=== PATIENT | female | born 1965 | race Caucasian/White ===

== ENCOUNTER → 2017-11-03 02:22 | Outpatient (CLI) | payer MEDICAID, SELFPAY ==
--- NOTE | 2017-11-03 13:20 | DI.MAMMO_ITS ---
SYMPTOM/DIAGNOSIS: SCREENING Z12.31 BILATERAL SCREENING MAMMOGRAM: Mammograms were interpreted according to the usual protocol including computer analysis with CAD system, tomosynthesis and C view imaging. Comparison is made with exams from 2015 and 2016 from [place], [place]. The breasts are composed of heterogeneously dense fibroglandular tissue, breast density category C. No suspicious masses or suspicious microcalcifications are seen. There has been no significant change. IMPRESSION: Category 1-C, negative mammogram. Yearly screening mammography is recommended. [facility] ASSESSMENT OF FINDINGS: Negative. Category 1. Patient will receive a letter notifying them of these results. Bi-RADS category C. The breasts are heterogeneously dense, which may obscure small masses.
== END ==
PROVIDERS: PCP Nurse Practitioner; Visit Provider Nurse Practitioner
DX: Z12.31 Encounter for screening mammogram for malignant neoplasm of breast (principal)
CPT/HCPCS: 77063; 77067

== ENCOUNTER 2017-11-07 13:26 | Outpatient (REF) | payer MEDICAID, SELFPAY ==
--- NOTE | 2017-11-07 10:00 | PAPFT_PTH ---
PATIENT: Viola Goodrich LOC: [facility] U#:[id number] AGE/SX: 52/F ROOM: RE11/07/[address]: Maria A Turk APRN : 1965 BED: DIS: 11/07/2017 SPEC #: [id number] RECD: 11/07/17 17:50 STATUS: PANKAJ RESuzan #: [id number] MILES: 11/07/17 10:[address]: Maria A Turk DEPT: [facility] Cytology RECD BY: Belinda Urena Tissues: 1 - CX/ENDOCX FOR PAP SMEARS Procedures: PAP THIN PREP/UVM Screening HPV DNA PROBE Comments: [id number]
== END 2017-11-07 13:46 ==
LOC: LBN 13:26
PROVIDERS: PCP Nurse Practitioner; Visit Provider Nurse Practitioner
DX: Z12.4 Encounter for screening for malignant neoplasm of cervix (principal); Z11.51 Encounter for screening for human papillomavirus (HPV)
CPT/HCPCS: 88142; 87624

== ENCOUNTER 2017-11-17 00:13 | Outpatient (CLI) | payer MEDICAID, SELFPAY ==
--- NOTE | 2017-11-17 09:58 | DI.US_ITS ---
SYMPTOMS/DIAGNOSIS: ABD PAIN, PELVIC PAIN, BLOATING, R10.9, R10.2 ABDOMEN ULTRASOUND: The liver is normal in size and echogenicity. No biliary dilatation is seen. The gallbladder has a normal appearance, without evidence of stones or wall thickening. The pancreas, aorta, kidneys and spleen appear normal. There is no ascites. IMPRESSION: Negative abdomen ultrasound. PELVIC ULTRASOUND: Transabdominal and transvaginal exams were performed. The uterus measures 6.7 x 2.6 x 4 cm. The endometrial stripe measures 3 mm. There are a few small hypoechoic areas in the uterus likely representing small fibroids. The ovaries are normal in size and appearance. No cyst or mass is seen. There is no free fluid. IMPRESSION: Small uterine fibroids. Normal appearing ovaries.
== END 2017-11-17 00:33 ==
PROVIDERS: PCP Nurse Practitioner; Visit Provider Nurse Practitioner
DX: R10.9 Unspecified abdominal pain (principal); R10.2 Pelvic and perineal pain; R14.0 Abdominal distension (gaseous); D25.9 Leiomyoma of uterus, unspecified
CPT/HCPCS: 76700; 76830; 76856

== ENCOUNTER 2019-02-13 10:22 | Outpatient (CLI) | payer MEDICAID, SELFPAY ==
[2019-02-13 11:45] LABS: ALT 26 U/L (14-59); AST 22 U/L (15-37); Albumin 3.6 g/dL (3.4-5.0); Alkaline Phosphatase 70 U/L (46-116); Anion Gap 8.2 mmol/L (3-11); BUN 13 mg/dL (7-18); Bilirubin, Total 0.5 mg/dL (0.2-1.0); CO2 28.8 mmol/L (21.0-32.0); CREATININE 0.69 mg/dL (0.55-1.02); Calcium 9.3 mg/dL (8.5-10.1); Calculated LDL 116 mg/dL; Chloride 104 mmol/L (98-107); Cholesterol 198 mg/dL (<200); Glucose 100 mg/dL (74-106); HDL Cholesterol 72 mg/dL (40-60); Potassium 4.7 mmol/L (3.5-5.1); Sodium 141 mmol/L (136-145); Total Protein 7.7 g/dL (6.4-8.2); Triglyceride 52 mg/dL (<150)
== END 2019-02-13 10:42 ==
PROVIDERS: PCP Nurse Practitioner; Visit Provider Nurse Practitioner
DX: Z13.220 Encounter for screening for lipoid disorders (principal)
CPT/HCPCS: 36415; 80053; 80061; 84155

== ENCOUNTER 2019-02-13 10:33 | Outpatient (REF) | payer MEDICAID, SELFPAY ==
--- NOTE | 2019-02-13 10:00 | PAPFT_PTH ---
PATIENT: Viola Goodrich LOC: [facility] U#:[id number] AGE/SX: 53/F ROOM: RE02/13/[address]: Maria A Turk APRN : 1965 BED: DIS: 02/13/2019 SPEC #: [id number] RECD: 02/13/19 12:44 STATUS: PANKAJ RESuzan #: [id number] MILES: 02/13/19 10:[address]: Maria A Turk DEPT: [facility] Cytology RECD BY: Belinda Urena Tissues: 1 - CX/ENDOCX FOR PAP SMEARS Procedures: PAP THIN PREP/UVM Screening HPV DNA PROBE Comments: [id number]
== END 2019-02-13 10:53 ==
LOC: LBN 10:33
PROVIDERS: PCP Nurse Practitioner; Visit Provider Nurse Practitioner
DX: Z12.4 Encounter for screening for malignant neoplasm of cervix (principal); Z11.51 Encounter for screening for human papillomavirus (HPV)
CPT/HCPCS: 88142; 87624

== ENCOUNTER 2019-03-18 12:05 | Outpatient (CLI) | payer MEDICAID, SELFPAY ==
--- NOTE | 2019-03-18 10:08 | DI.RAD_ITS ---
EXAM: XR CERVICAL SP MUSTAFA TRAUMA 2-3V INDICATION: EVAL NECK PAIN AND STIFFNESS. COMPARISON: No exams were available for comparison TECHNIQUE: 2D digital imaging was performed. FINDINGS: There is artifact from the patient's hair tie overlying the cervical spine. The odontoid is intact. The lateral masses are well aligned. No acute fracture or subluxation is se en. There is straightening of the normal cervical lordosis. This can be seen with muscle spasm or p atient positioning. There are small endplate osteophytes in the cervical spine. The bones are russell lly mineralized. Prevertebral soft tissues are unremarkable. IMPRESSION: 1. Artifact from the patient's hair tie is seen overlying the cervical spine. 2. Mild degenerative changes in the cervical spine.
--- NOTE | 2019-03-18 10:13 | DI.RAD_ITS ---
EXAM: XR SHOULDER LT COMPLETE 2+V CLINICAL HISTORY: eval L shoulder pain. TECHNIQUE: 2D digital imaging was performed. COMPARISON: No exams were available for comparison FINDINGS: BONES: No acute fracture is present. No bony destructive lesion is seen. JOINTS: No dislocation present. SOFT TISSUE: Normal. IMPRESSION: Unremarkable radiographs of the left shoulder.
== END 2019-03-18 12:25 ==
PROVIDERS: PCP Nurse Practitioner; Visit Provider Student in an Organized Health Care Education/Training Program
DX: M54.2 Cervicalgia (principal); M47.812 Spondylosis without myelopathy or radiculopathy, cervical region; M25.512 Pain in left shoulder
CPT/HCPCS: 72040; 73030

== ENCOUNTER 2020-02-19 01:42 | Outpatient (CLI) | payer MEDICAID, SELFPAY ==
[2020-02-19 13:16] LABS: ALT 26 U/L (14-59); AST 20 U/L (15-37); Albumin 3.8 g/dL (3.4-5.0); Alkaline Phosphatase 73 U/L (46-116); Anion Gap 6.5 mmol/L (3-11); BUN 16 mg/dL (7-18); Bilirubin, Total 0.5 mg/dL (0.2-1.0); CO2 29.5 mmol/L (21.0-32.0); CREATININE 0.66 mg/dL (0.55-1.02); Calcium 9.1 mg/dL (8.5-10.1); Calculated LDL 99 mg/dL (<100); Chloride 106 mmol/L (98-107); Cholesterol 190 mg/dL (<200); Glucose 97 mg/dL (74-106); HDL Cholesterol 85 mg/dL (40-60); Potassium 4.6 mmol/L (3.5-5.1); Sodium 142 mmol/L (136-145); Total Protein 7.8 g/dL (6.4-8.2); Triglyceride 34 mg/dL (<150)
== END 2020-02-19 02:02 ==
PROVIDERS: PCP Nurse Practitioner; Visit Provider Nurse Practitioner
DX: Z13.220 Encounter for screening for lipoid disorders (principal); Z00.00 Encounter for general adult medical examination without abnormal findings
CPT/HCPCS: 36415; 80053; 80061

== ENCOUNTER 2020-03-16 01:04 | Outpatient (CLI) | payer MEDICAID, SELFPAY ==
--- NOTE | 2020-03-16 13:21 | DI.MAMMO_ITS ---
EXAM: MG MAMMO SCREENING CLINICAL HISTORY: screening,z12.39. TECHNIQUE: Bilateral full field digital CC and MLO mammographic images were obtained with 3D tomosyn thesis and utilizing computer aided detection (CAD). COMPARISON: Prior mammograms dating back to 2014, the most recent being October 2017. FINDINGS: Fibroglandular tissue is moderately dense. There are no new obvious spiculated masses no malignant-appearing microcalcification groups. A centr ally located group microcalcifications in the right breast is unchanged from 2015 and therefore benig n. Microcalcification groups in the left breast are also unchanged from 2015 and therefore benign. There are no malignant-appearing microcalcification groups. There is no significant architectural di stortion nor skin thickening-retraction. IMPRESSION: Stable benign findings. No radiographic evidence of malignancy. BI-RADS Category 2 - Benign Findings Breast Density - Category C - Heterogeneously dense Breast density Category C or D implies that the patient has dense breast tissue. Dense breast tissue can make it harder to find cancer on a mammogram. Dense breast tissue is also associated with an incr eased risk of breast cancer. This information about the result of the mammogram report was provided to the patient to raise their awareness. Use this report when you speak with the patient about their risks for breast cancer, which includes their family history. At that time, you may recommend additional screening tests (Ultrasoun d or MRI) as these tests may add significant information. A negative radiographic report should not delay biopsy if a dominant or clinically suspicious mass is present. Up to ten percent of cancers are not identified on mammography. A negative report may reinforce clinical impression. Adenosis and dense breasts may obscure an underlying neoplasm. False positive reports average 6 to 10%. Patient will receive a letter notifying them of these results.
== END 2020-03-16 01:24 ==
PROVIDERS: PCP Nurse Practitioner; Visit Provider Nurse Practitioner
DX: Z12.31 Encounter for screening mammogram for malignant neoplasm of breast (principal)
CPT/HCPCS: 77063; 77067

== ENCOUNTER 2020-12-17 01:36 | Outpatient (CLI) | payer MEDICAID, SELFPAY ==
--- NOTE | 2020-12-17 07:00 | DI.US_ITS ---
Exam(s) US ABDOMEN EXAM: US ABDOMEN INDICATION: discomfort and bloating upper abdomen,EPIGASTRIC ABD PAIN,R10.13,R14.0 COMPARISON: US US ABD PELV TRANSVAG NON-STRUCTURAL FITTER from 11/17/2017 TECHNIQUE: Ultrasound abdomen performed using standard protocol FINDINGS: Abdominal ultrasound was performed according to the usual protocol. The liver is normal in size and shape. No focal hepatic lesion seen. Mildly increased echogenicity o f the liver noted, possible hepatic steatosis. There is no evidence of cholelithiasis or biliary dilatation. No gallbladder wall thickening or peric holecystic fluid collection. Portal venous flow is hepatopetal. Pancreas appears intact as visualized. Spleen is unremarkable in appearance with no focal lesion. Kidneys are normal in size and shape. No renal mass, hydronephrosis, or nephrolithiasis. Abdominal aorta and IVC are of normal diameter. IMPRESSION: Possible hepatic steatosis, otherwise negative abdominal ultrasound .
== END 2020-12-17 01:56 ==
PROVIDERS: PCP Nurse Practitioner; Visit Provider Nurse Practitioner
DX: R10.13 Epigastric pain (principal); R14.0 Abdominal distension (gaseous)
CPT/HCPCS: 36415; 82784; 83516; 76700

== ENCOUNTER 2021-02-22 11:35 | Outpatient (REF) | payer MEDICAID, SELFPAY ==
[2021-02-22 15:07] LABS: Abs Immature Grans 0.01 10^3/uL (0.0-0.06); Absolute Basophil Count 0.05 10^3/uL (0.0-0.2); Absolute Eosinophil Count 0.25 10^3/uL (0.0-0.7); Absolute Lymphocyte Count 2.67 10^3/uL (1.2-3.4); Absolute Monocyte Count 0.56 10^3/uL (0.1-0.8); Basophils % 0.7; Eosinophils % 3.4; HCT 42.2 % (36.0-46.0); HGB 13.5 g/dL (11.2-15.7); Immature Grans % 0.1; Lymphocytes % 35.9; MCH 29.9 pg (27.0-33.0); MCV 93.6 fL (80-95); MPV 12.6 fL (8.0-11.0); Monocytes % 7.5; Neutrophils % 52.4; Nucleated RBC 0 %; Platelet Count 310 10^3/uL (130-400); RBC 4.51 10^6/uL (3.93-5.22); RDW 13.8 % (11.7-14.6); RDW-SD 47.6 fL; WBC 7.44 10^3/uL (4.4-10.8)
[2021-02-22 15:30] LABS: ALT 25 U/L (14-59); AST 15 U/L (15-37); Albumin 3.8 g/dL (3.4-5.0); Alkaline Phosphatase 74 U/L (46-116); Anion Gap 6.9 mmol/L (3-11); BUN 15 mg/dL (7-18); Bilirubin, Total 0.5 mg/dL (0.2-1.0); CO2 29.1 mmol/L (21.0-32.0); CREATININE 0.7 mg/dL (0.55-1.02); Calcium 9.1 mg/dL (8.5-10.1); Calculated LDL 98 mg/dL (<100); Chloride 105 mmol/L (98-107); Cholesterol 189 mg/dL (<200); Glucose 95 mg/dL (74-106); HDL Cholesterol 82 mg/dL (40-60); Potassium 4.5 mmol/L (3.5-5.1); Sodium 141 mmol/L (136-145); Total Protein 7.4 g/dL (6.4-8.2); Triglyceride 49 mg/dL (<150)
== END 2021-02-22 11:36 | disposition home or self-care (01) ==
LOC: LBN 11:35
PROVIDERS: PCP Nurse Practitioner; Visit Provider Nurse Practitioner
DX: J45.909 Unspecified asthma, uncomplicated (principal); Z13.220 Encounter for screening for lipoid disorders; Z00.00 Encounter for general adult medical examination without abnormal findings
CPT/HCPCS: 80053; 80061; 85025

== ENCOUNTER 2022-11-17 12:01 | Day surgery (SDC) | payer MEDICAID, SELFPAY ==
--- NOTE | 2022-11-17 10:26 | W.PM.DSUDISC ---
Date of service: 11/17/22 Time of Service: 13:54 Discharge Plan Disposition Patient Disposition: Home Condition: Good Discharge Details Reason For Visit: Screening colonoscopy Attending Provider: Boubacar Hernandez Primary Care Provider: Maria A Turk Home Meds and New Rx's Prescriptions: Continued fluticasone propionate 50 mcg/actuation spray,suspension 2 spray NS BID PRN ibuprofen [Advil] 200 mg tablet 400 mg PO Q6H PRN (Reason: neck pain) Discontinued polyethylene glycol 3350 17 gram/dose powder 238 g PO ONCE Qty: 238 0RF Rx Instructions: take per colonoscopy instructions bisacodyl [Dulcolax (bisacodyl)] 5 mg tablet,delayed release (DR/EC) 5 mg PO ONCE Qty: 4 0RF Rx Instructions: take per colonoscopy instructions Discharge Instructions Additional Instructions: Viola, We were able to complete your colonoscopy today without any difficulty. The quality of your prep was excellent. I did not see anything out of the ordinary. There were no polyps or tumors. Based on your previous negative colonoscopy in 2016, and the negative colonoscopy today, I recommend considering another screening colonoscopy in 10 years 1. If tolerated, consume a soft, low fiber diet for 1-2 days. 2. Do not drive, drink alcohol, operate machinery, make critical decisions, or do activities that require coordination or balance for 24 hours. 3. Because air was put into your colon during the procedure, expelling air from your rectum (passing gas or farting) is normal. 4. You may not have a bowel movement for 1-3 days because of the colonoscopy prep. This is normal. 5. Go directly to the emergency room if you notice any of the following: Develop chills (warm to touch), or if you have a thermometer and your temperature is above 101 Difficulty breathing or difficultly swallowing Persistent vomiting Severe abdominal pain, other than gas cramps Severe chest pain Black, tarry stools Any bleeding ? exceeding one tablespoon 6. Call your physician if the site where your intravenous was started becomes red, swollen, painful, and warm to touch. 7. Your physician has reviewed your pre-procedure medications. Please continue to take those medications as previously ordered. You will be given specific information/education regarding any changes to your medications before leaving. Activity:: Activity as Tolerated Diet:: As Tolerated Discharge Orders Discharge Orders: Discharge Order (Routine); Ordered 11/17/22 Ordered By: Boubacar Hernandez DS: Diagnosis Discharge Diagnosis (1) Colon cancer screening: Status: Acute Asessment and Plan: Negative screening colonoscopy
--- NOTE | 2022-11-17 10:27 | W.COLOREPORT ---
Date of service: 11/17/22 Time of Service: 13:58 Colonoscopy Report Date of procedure: 11/17/22 Pre-op diagnosis general: screening colonoscopy Post-op diagnosis procedure note: other (Negative screening colonoscopy) Procedure: Colonoscopy Surgeon: Boubacar Hernandez Anesthesia Type: General:No Airway Estimated blood loss (mL): 0 Pathology: none sent Complications: None Disposition: same day Indications: Viola is a 57 year old woman who needs her next screening colonoscopy Prep: Miralax/Dulcolax Procedure Start Time: 12:35 Procedure End Time: 12:50 Retraction Time: 9 Findings: Negative screening colonoscopy Procedure Description: After the induction of monitored anesthetic care, and with the patient in left lateral decubitus position, I began by performing an external anorectal exam.? Perineum and skin were normal, as was the anal verge.? There was no evidence of external hemorrhoids.? Next, I performed a digital rectal exam.? I did not appreciate any abnormal findings.? Next, I advanced a colonoscope into the rectal vault.? I performed retroflexion.? This was normal.? Using insufflation, I then advanced the colonoscope beyond the rectal folds and into the sigmoid colon before advancing towards the cecum.? The quality of the prep was excellent.? The scope was noted to be in the cecum by identification of the ileocecal valve and appendiceal orifice.? I then began withdrawing the colonoscope using repeated irrigation as necessary for full evaluation of the colonic mucosa. I did not see any signs of tumors or polyps anywhere in the large intestine. once the scope was withdrawn to the level of the rectum, great care was taken to examine portions of the rectal folds.? Finally, the scope was withdrawn and the patient was brought to the same-day surgery recovery unit as the anesthetic wore off. ?The findings and instructions were shared with the patient prior to discharge.
[2022-11-17 12:22] VITALS: BP 141/86; PULSE 62; RESP 16; TEMP 36.5; O2SAT 99
--- NOTE | 2022-11-17 13:05 | W.ANESPRE ---
General Info Date of Service Date Performed: 11/17/22 Height: 5 ft 3 in Weight: 74.1 kg Body Mass Index (BMI): 28.9 Surgical Procedure: Operation Date: 11/17/22 13:35 Proposed Procedure Side Surgeon jarod Hernandez MD Meds Allergies and Home Medications Allergies Allergy/AdvReac Type Severity Reaction Status Date / Time latex Allergy Intermediate Skin Rash Verified 11/17/22 12:34 shrimp Allergy Intermediate GI upset, Uncoded 11/17/22 12:34 water itches hands Home Medication Medication Instructions Recorded ibuprofen 200 mg tablet (Advil) 400 mg PO Q6H PRN neck pain 10/27/21 fluticasone propionate 50 2 spray NS BID PRN 11/09/22 mcg/actuation nasal spray,suspension Current Visit Medications: Current Medications Generic Name Dose Route Start Last Admin Trade Name Freq PRN Reason Stop Dose Admin Hyoscyamine Sulfate 0.125 mg 11/17/22 10:30 Hyoscyamine 0.125 Mg Sl/Oral/Chew SL 12/17/22 10:29 DIRECTED PRN Ringer's Solution 1,000 mls @ 80 mls/hr 11/17/22 06:00 IV 12/16/22 23:59 [facility] IV Miscellaneous Supplies 1 each 11/17/22 06:00 Iv Access IV 12/16/22 23:59 DIRECTED JESSIE Ondansetron HCl 4 mg 11/17/22 10:30 Ondansetron 4 Mg/2 Ml Vial IVP 12/17/22 10:29 Q4H PRN PRN Nausea / Vomiting Sodium Chloride 0 ml 11/17/22 06:00 Normal Saline Flush 10 Ml Syr IV 12/16/22 23:59 PRN PRN Sodium Chloride 0 ml 11/17/22 06:00 Normal Saline 10 Ml Vial IJ 12/16/22 23:59 DIRECTED PRN Sterile Water 0 ml 11/17/22 06:00 Water,Injection,Sterile 10 Ml Vial IJ 12/16/22 23:59 DIRECTED PRN PFSH Active Problems Active Problems: Problem Status Onset Code Breast calcifications 07/07/17 R92.1 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 Uterine fibroid D25.9 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 Routine general medical examination at a health care facility Z00.00 Encounter for routine gynecological examination Z01.419 Left shoulder pain M25.512 Tendinitis of left rotator cuff M75.82 Scapular dyskinesis G25.89 Screening for cholesterol level Z13.220 Spider vein of right lower extremity I83.91 Edema of right lower extremity R60.0 Abdominal bloating R14.0 Epigastric abdominal pain R10.13 Colon cancer screening Z12.11 Vertigo R42 Varicose veins of both lower extremities with pain I83.813 Surgical History Surgical History (Updated 11/17/22 @ 12:34 by Radha Garcia RN) Hx of colonoscopy Hx of varicose vein stripping Ligation of fallopian tube Tobacco Smoking/Tobacco Use Status: Former Tobacco Use Passive smoking exposure: No Second hand exposure: No Alcohol Alcohol Intake: current Alcohol intake frequency: 0-2 drinks per day Alcohol type: wine Substance Use Substance use: Never Substance use type: does not use Vital Signs and Lab Results Vital Signs Most Recent Vital Signs in EMR: Most Recent Vital Signs Temp Pulse Resp BP Pulse Ox 36.5 C 62 16 141/86 H 99 11/17/22 12:22 11/17/22 12:22 11/17/22 12:22 11/17/22 12:22 11/17/22 12:22 Lab Results Blood Type / Crossmatch: No Data to Display Complete Blood Count: No Data to Display Complete Metabolic Panel: No Data to Display Liver Function Panel: No Data to Display Coagulation Panel: No Data to Display Cardiac Panel: No Data to Display Arterial Blood Gas: No Data to Display Venous Blood Gas: No Data to Display Pancreas Panel: No Data to Display Thyroid Panel: No Data to Display Infectious Disease: No Data to Display Blood Cultures: No Data to Display Toxicology Panel: No Data to Display Anesthesia Assessment and Plan Anesthesia History Personal History: No History of Anesthesia Complications and Pseudocholinesterase Deficiency Family History: No Family History of Anesthesia Complications Exercise Tolerance Exercise Tolerance: Metabolic Equivalents>4 Pertinent Negatives Pertinent Negatives: No Symptoms of GERD, No Major Cardiovascular Symptoms or Complaints, No Major Pulmonary Symptoms or Complaints and No History of CVA/TIA Cardiac & Pulmonary Exam Cardiac Exam: Normal S1/S2 Heart Sounds Pulmonary Exam: Clear Bilateral Breath Sounds Implantable Cardiac Device Does patient have a Pacemaker or an ICD?: No Airway Exam Known Difficult Airway: No Mallampati Class: 3 Mouth Opening: Narrow (< 3cm) Thyromental Distance: Greater than 3 cm Neck Range of Motion: Full ROM Neck Circumference: Normal Teeth Condition: Normal Dentition and Removable Dentures/Plates Upper (upper partial ) ASA Classification ASA Score: ASA 2 Emergency Case?: No NPO Status NPO Status: NPO Clears >2 hours, Solids >8 hours Anesthesia Plan Resuscitation Status: Full Code Anesthesia Technique: General Anesthesia Airway Planned: Natural Airway Monitors Used: Standard Monitors
[2022-11-17] MEDS: Lactated Ringers 1,000 ML 80 ML IV (13:24)
[2022-11-17 13:28] VITALS: BMI 28.9
[2022-11-17 13:58] VITALS: BP 102/71; PULSE 78; RESP 16; TEMP 36.2; O2SAT 97
[2022-11-17 14:27] VITALS: BP 112/74; PULSE 70; RESP 17; TEMP 36.4; O2SAT 98
--- NOTE | 2022-11-17 14:29 | W.ANESPOSTOP ---
Postoperative Evaluation Date, Time and Location Date Performed: 11/17/22 Time Performed: 14:01 Patient Location: Day Surgery Unit Vital Signs Most Recent Imported Vital Signs: Most Recent Vital Signs Temp Pulse Resp BP Pulse Ox 36.2 C L 78 16 102/71 97 11/17/22 13:58 11/17/22 13:58 11/17/22 13:58 11/17/22 13:58 11/17/22 13:58 Pain Score Most Recent Pain Score: Most Recent Pain Score Pain Level 0 11/17/22 13:58 Assessment Mental Status: Awake (Alert & Oriented to Patient Baseline) Airway and Respiratory Function: Patent airway with normal (patient baseline) respiratory exam Cardiovascular Function: Hemodynamically Stable Hydration Status: Adequately Hydrated Nausea & Vomiting: No Nausea or Vomiting Pain: Pt. Denies Any Pain Peripheral Nerve Block: Patient did not receive a nerve block
== END 2022-11-17 14:33 | disposition home or self-care (01) ==
PROVIDERS: PCP Nurse Practitioner; Visit Provider Surgery
PROC: 0DJD8ZZ Inspection of Lower Intestinal Tract, Via Natural or Artificial Opening Endoscopic (ICD-10-PCS; CPT 45378; principal; 2022-11-17 13:30)
DX: Z12.11 Encounter for screening for malignant neoplasm of colon (principal)
CPT/HCPCS: 45378

== ENCOUNTER 2022-12-05 19:08 | Outpatient (REF) | payer SELFPAY | END 2022-12-05 19:09 | disposition home or self-care (01) | LOC: LBN 19:08 | PROVIDERS: PCP Nurse Practitioner; Visit Provider Nurse Practitioner | DX: R30.0 Dysuria (principal) | CPT/HCPCS: 87086 ==

== ENCOUNTER 2023-01-16 03:53 | Outpatient (CLI) | payer SELFPAY ==
[2023-01-16 15:47] LABS: ALT 25 U/L (14-59); AST 23 U/L (15-37); Albumin 3.6 g/dL (3.4-5.0); Alkaline Phosphatase 77 U/L (46-116); Anion Gap 6.9 mmol/L (3-11); BUN 12 mg/dL (7-18); Bilirubin, Total 0.4 mg/dL (0.2-1.0); CO2 29.1 mmol/L (21.0-32.0); CREATININE 0.7 mg/dL (0.55-1.02); Calcium 9.5 mg/dL (8.5-10.1); Chloride 103 mmol/L (98-107); Estimated GFR 100.19 (mL/min/1.73m2); Glucose 99 mg/dL (74-106); Potassium 3.9 mmol/L (3.5-5.1); Sodium 139 mmol/L (136-145); Total Protein 8.2 g/dL (6.4-8.2)
[2023-01-16 16:49] LABS: Calculated LDL 101 mg/dL (<100); Cholesterol 196 mg/dL (<200); HDL Cholesterol 85 mg/dL (40-60); Triglyceride 50 mg/dL (<150)
== END 2023-01-16 03:54 | disposition home or self-care (01) ==
LOC: LBO 03:55
PROVIDERS: PCP Nurse Practitioner; Visit Provider Nurse Practitioner
DX: Z13.220 Encounter for screening for lipoid disorders (principal)
CPT/HCPCS: 36415; 80053; 80061

== ENCOUNTER 2024-08-07 10:36 | Outpatient (CLI) | payer MEDICAID, SELFPAY ==
--- NOTE | 2024-08-07 11:09 | DI.RAD_ITS ---
Exam(s) XR FOOT RT COMPLETE EXAM: XR FOOT RT COMPLETE CLINICAL HISTORY: new bilateral heel pain; Rt heel pain, M79.671. TECHNIQUE: 2D digital imaging was performed of the right foot. Three images were obtained. AP, obl ique and lateral views were obtained. COMPARISON: No exams were available for comparison FINDINGS: BONES: No acute fracture is present. No bony destructive lesion is seen. There is a small plantar yamile caneal spur. There is a small enthesophyte at the posterior calcaneus. JOINTS: No dislocation present. SOFT TISSUE: Normal. IMPRESSION: Calcaneal spurs. DATA REPOSITORY: RADIATION DOSE DELIVERED:
--- NOTE | 2024-08-07 11:12 | DI.RAD_ITS ---
Exam(s) XR FOOT LT COMPLETE EXAM: XR FOOT LT COMPLETE CLINICAL HISTORY: new bilateral heel pain; pain in lt foot, M79.672. TECHNIQUE: 2D digital imaging was performed of the left foot. Three images were obtained. AP, obli que and lateral views were obtained. COMPARISON: No exams were available for comparison FINDINGS: BONES: No acute fracture is present. No bony destructive lesion is seen. There is a small plantar yamile caneal spur. There is a small enthesophyte at the posterior calcaneus. JOINTS: No dislocation present. SOFT TISSUE: Normal. IMPRESSION: Calcaneal spurs. DATA REPOSITORY: RADIATION DOSE DELIVERED:
== END 2024-08-07 10:56 ==
LOC: DI 10:36
PROVIDERS: PCP Nurse Practitioner; Visit Provider Family Medicine
DX: M79.671 Pain in right foot (principal); M79.672 Pain in left foot; M77.32 Calcaneal spur, left foot; M77.31 Calcaneal spur, right foot
CPT/HCPCS: 73630

== ENCOUNTER 2024-08-07 11:21 | Outpatient (CLI) | payer MEDICAID, SELFPAY ==
[2024-08-07 10:59] LABS: Abs Immature Grans 0.03 10^3/uL (0.0-0.06); Absolute Basophil Count 0.05 10^3/uL (0.0-0.2); Absolute Eosinophil Count 0.39 10^3/uL (0.0-0.7); Absolute Lymphocyte Count 2.78 10^3/uL (1.2-3.4); Absolute Monocyte Count 0.58 10^3/uL (0.1-0.8); Absolute Neutrophil Count 4.26 10^3/uL (1.2-6.7); Basophils % 0.6 %; Eosinophils % 4.8 %; HCT 43.9 % (36.0-46.0); HGB 13.9 g/dL (11.2-15.7); Immature Grans % 0.4 %; Lymphocytes % 34.4 %; MCH 29.4 pg (27.0-33.0); MCHC 31.7 % (32.0-36.0); MCV 93 fL (80-95); MPV 11.2 fL (8.0-11.0); Monocytes % 7.2 %; Neutrophils % 52.6 %; Platelet Count 302 10^3/uL (130-400); RBC 4.72 10^6/uL (3.93-5.22); RDW 13.9 % (11.7-14.6); RDW-SD 47.7 fL; WBC 8.09 10^3/uL (4.4-10.8)
[2024-08-07 10:59] LABS: Bilirubin Negative (Negative); Blood Trace-lysed (Negative); Clarity Clear (Clear); Glucose Negative (Negative); Ketones Negative (Negative); Leukocyte Esterase Negative (Negative); Nitrite Negative (Negative); Specific Gravity <= 1.005 (1.005-1.025); Urobilinogen 0.2 mg/dL (Up to 0.2)
[2024-08-07 11:17] LABS: Bacteria Rare HPF (Negative); C & S Indicated? No; Casts Negative LPF (Negative); Crystals Negative HPF (Negative); Epithelial Cells Rare HPF (Negative); Mucus Negative (Negative); WBC 0-2 HPF (0-5)
[2024-08-07 11:41] LABS: Hemoglobin A1C 5.6 % (<5.7)
[2024-08-07 11:57] LABS: ALT 20 U/L (14-59); AST 19 U/L (15-37); Albumin 3.6 g/dL (3.4-5.0); Alkaline Phosphatase 91 U/L (46-116); Anion Gap 4.2 mmol/L (3-11); BUN 12 mg/dL (7-18); Bilirubin, Total 0.5 mg/dL (0.2-1.0); CO2 30.8 mmol/L (21.0-32.0); CREATININE 0.7 mg/dL (0.55-1.02); Calcium 9.1 mg/dL (8.5-10.1); Calculated LDL 94 mg/dL (<100); Chloride 104 mmol/L (98-107); Cholesterol 180 mg/dL (<200); Estimated GFR 98.95 (mL/min/1.73m2); Glucose 98 mg/dL (74-106); HDL Cholesterol 76 mg/dL (>or=50); Sodium 139 mmol/L (136-145); TSH 1.74 uIU/mL (0.36-3.74); Triglyceride 52 mg/dL (<150)
== END 2024-08-07 11:22 | disposition home or self-care (01) ==
LOC: LBO 11:21
PROVIDERS: PCP Nurse Practitioner; Visit Provider Family Medicine
DX: Z13.228 Encounter for screening for other metabolic disorders (principal); R53.83 Other fatigue
CPT/HCPCS: 36415; 80053; 80061; 81003; 81015; 83036; 84443; 85025